=== PATIENT | male | born 1950 | race Caucasian/White ===

== ENCOUNTER 2021-09-06 09:13 | Inpatient (IN) ==
[2021-09-06 10:10] LABS: Basophils # 0.1 K/mcL (0.0-0.2); Basophils % 0.6 %; Eosinophils # 0.3 K/mcL (0.0-0.6); Eosinophils % 2.9 %; Hemoglobin 8.4 g/dL (12.9-16.9); Immature Granulocytes % 0.3 % (0-4); Lymphocytes % 9.1 %; Mean Corpuscular Hemoglobin 22.7 pg (28.0-33.3); Mean Corpuscular Volume 78.4 fL (83.0-100.0); Mean Platelet Volume 9.2 fL (9.4-12.4); Monocytes # 1.1 K/mcL (0.0-1.3); Monocytes % 10.1 %; Neutrophils # 8.4 K/mcL (1.6-8.9); Platelet Count 344 K/mcL (140-400); Red Cell Distribution Width 19.5 % (11.5-14.5); White Blood Count 10.9 K/mcL (4.3-11.1)
[2021-09-06 10:13] LABS: VBG HCO3 30 mEq/L (21-27); VBG PCO2 68 mmHg (41-51); VBG PH 7.25 pH Units (7.32-7.42); VBG PO2 36 mmHg (25-50)
[2021-09-06 10:17] LABS: Prothrombin Time 11.6 Seconds (9.4-12.1)
[2021-09-06 10:20] LABS: Activated Partial Thrombo Time 32.8 Seconds (26.0-36.0)
[2021-09-06 10:32] LABS: Albumin 3.9 g/dL (3.5-5.7); Albumin/Globulin Ratio 1.6 (1.1-2.2); Bilirubin,Direct 0.1 mg/dL (0.0-0.2); Bilirubin,Indirect 0.3 mg/dL (0.0-1.0); Bilirubin,Total 0.4 mg/dL (0.3-1.0); Calcium 9.6 mg/dL (8.6-10.3); Globulin 2.5 g/dL (2.4-3.5); Potassium 4.6 mEq/L (3.5-5.1); Total Protein 6.4 g/dL (6.4-8.9); Troponin I 0.03 ng/mL (< 0.04)
[2021-09-06 14:13] LABS: Influenza A PCR Negative (Negative); Influenza B PCR Negative (Negative); Resp. Syncytial Virus PCR Negative (Negative); SARS-CoV-2 by PCR (In House) Negative (Negative)
[2021-09-06] MEDS ORDERED: Ipratropium/Albuterol Neb 3 ML IH ONE (14:35)
[2021-09-06] MEDS ORDERED: methylPREDNISolone 125 MG/2 ML VIAL IVP ONE (14:45)
[2021-09-06] MEDS ORDERED: levoFLOXacin 500 MG/100 ML 500 MG/100 ML BAG IVPB ONE (14:45)
[2021-09-06] MEDS ORDERED: Naloxone 0.4 MG/ML INJ IVP PRN (16:06)
[2021-09-06] MEDS ORDERED: Ondansetron 4 MG/2 ML VIAL IVP PRN (16:06)
[2021-09-06] MEDS ORDERED: Nitroglycerin 0.4 MG TAB.SUBL SL PRN (16:43)
[2021-09-06] MEDS: Nicotine 21 MG PATCH.TD24 TD SCH (17:00)
[2021-09-06] MEDS: *HR* OxyCODONE Immed Rel 15 MG TABLET PO PRN (17:00)
[2021-09-06] MEDS: *HR* Heparin 5,000 UNIT/ML VIAL SQ SCH (17:00)
[2021-09-06] MEDS: Albuterol 2.5 MG/3 ML NEBULIZER IH SCH ×2 (19:49→23:31)
[2021-09-06] MEDS: carvediloL 6.25 MG TABLET PO SCH (21:23)
[2021-09-06] MEDS: traZODone 50 MG TABLET PO SCH (21:23)
[2021-09-06] MEDS: Pregabalin 75 MG CAPSULE PO SCH (21:23)
[2021-09-07] MEDS: Albuterol 2.5 MG/3 ML NEBULIZER IH SCH ×5 (03:47→19:51)
[2021-09-07 04:49] LABS: VBG HCO3 28 mEq/L (21-27); VBG PCO2 42 mmHg (41-51); VBG PH 7.43 pH Units (7.32-7.42); VBG PO2 81 mmHg (25-50)
[2021-09-07 04:53] LABS: Basophils % 0.4 %; Hemoglobin 8.2 g/dL (12.9-16.9); Immature Granulocytes % 0.8 % (0-4); Lymphocytes # 0.4 K/mcL (0.6-4.6); Lymphocytes % 6.8 %; Mean Corpuscular HGB Conc 29.3 g/dL (31.6-35.5); Mean Corpuscular Volume 75.3 fL (83.0-100.0); Mean Platelet Volume 9.3 fL (9.4-12.4); Monocytes # 0.2 K/mcL (0.0-1.3); Monocytes % 3.6 %; Neutrophils # 4.7 K/mcL (1.6-8.9); Platelet Count 337 K/mcL (140-400); Red Blood Count 3.72 M/mcL (4.19-5.50); Red Cell Distribution Width 19.2 % (11.5-14.5); Segmented Neutrophils % 88.4 %
[2021-09-07 05:00] LABS: White Blood Count 5.3 K/mcL (4.3-11.1)
[2021-09-07 05:27] LABS: BUN/Creatinine Ratio 16 (6-26); Blood Urea Nitrogen 18 mg/dL (8-23); Calcium 9.6 mg/dL (8.6-10.3); Carbon Dioxide 29 mEq/L (23-29); Chloride 100 mEq/L (98-107); Glucose 112 mg/dL (70-105); Magnesium 1.8 mg/dL (1.6-2.6); Osmolality,Calculated 285 (280-300); Potassium 4.7 mEq/L (3.5-5.1); Sodium 136 mEq/L (136-145); eGFR For African Americans > 60 (> 60); eGFR For Non-African Americans > 60 (> 60)
[2021-09-07] MEDS: *HR* Heparin 5,000 UNIT/ML VIAL SQ SCH ×2 (06:17→20:10)
[2021-09-07] MEDS: Aspirin Enteric Coated 81 MG Tablet PO SCH (09:20)
[2021-09-07] MEDS: lisinopriL 10 MG TABLET PO SCH (09:20)
[2021-09-07] MEDS: *HR* OxyCODONE Immed Rel 15 MG TABLET PO PRN ×3 (09:20→22:29)
[2021-09-07] MEDS: Nicotine 21 MG PATCH.TD24 TD SCH (09:20)
[2021-09-07] MEDS: Pregabalin 75 MG CAPSULE PO SCH ×3 (09:20→20:47)
[2021-09-07] MEDS: carvediloL 6.25 MG TABLET PO SCH ×2 (09:20→20:47)
[2021-09-07] MEDS: predniSONE 20 MG TABLET PO SCH (09:20)
[2021-09-07 13:16] LABS: Adenovirus Not Detected (Not Detect); Bordetella Pertussis Not Detected (Not Detect); Chlamydophila pneumoniae Not Detected (Not Detect); Coronavirus 229E Not Detected (Not Detect); Coronavirus HKU1 Not Detected (Not Detect); Coronavirus NL63 Not Detected (Not Detect); Coronavirus OC43 Not Detected (Not Detect); Human Metapneumovirus Not Detected (Not Detect); Human Rhinovirus/Enterovirus Not Detected (Not Detect); Influenza A Subtype 2009 H1 Not Detected (Not Detect); Influenza B Not Detected (Not Detect); Mycoplasma pneumoniae Not Detected (Not Detect); Parainfluenza Virus 1 Not Detected (Not Detect); Parainfluenza Virus 2 Not Detected (Not Detect); Parainfluenza Virus 3 Not Detected (Not Detect); Parainfluenza Virus 4 Not Detected (Not Detect); Respiratory Syncytial Virus Not Detected (Not Detect); SARS-CoV-2 Not Detected (Not Detect)
[2021-09-07] MEDS ORDERED: levoFLOXacin 750 MG/150 ML 750 MG/150 ML BAG IVPB SCH (16:00)
[2021-09-07 18:02] LABS: Bilirubin,Urine Negative (Negative); Blood,Urine Negative (Negative); Clarity,Urine Clear (Clear); Color,Urine Yellow (Yellow); Glucose,Urine (UA) Normal (Normal); Ketones,Urine 40 mg/dL (Negative); Leukocyte Esterase,Urine Negative (Negative); Nitrite,Urine Negative (Negative); Protein,Urine Negative (Neg-Trace); Urobilinogen,Urine Normal (Normal)
[2021-09-07 18:15] LABS: Mucus,Urine Few per lpf (None-Few); RBC,Urine 0-3 per hpf (0-3); Squamous Epithelial Cell,Urine Few per hpf (None-Few); WBC,Urine 0-3 per hpf (0-3)
[2021-09-07] MEDS: traZODone 50 MG TABLET PO SCH (20:47)
[2021-09-08] MEDS: Albuterol 2.5 MG/3 ML NEBULIZER IH SCH ×4 (00:30→11:41)
[2021-09-08] MEDS: *HR* Heparin 5,000 UNIT/ML VIAL SQ SCH (04:28)
[2021-09-08] MEDS: *HR* OxyCODONE Immed Rel 15 MG TABLET PO PRN ×2 (04:29→11:09)
[2021-09-08 07:25] LABS: BUN/Creatinine Ratio 18 (6-26); Blood Urea Nitrogen 25 mg/dL (8-23); Calcium 9.2 mg/dL (8.6-10.3); Carbon Dioxide 29 mEq/L (23-29); Chloride 101 mEq/L (98-107); Glucose 111 mg/dL (70-105); Osmolality,Calculated 289 (280-300); Potassium 3.6 mEq/L (3.5-5.1); Sodium 137 mEq/L (136-145); eGFR For African Americans > 60 (> 60); eGFR For Non-African Americans 51 (> 60)
[2021-09-08] MEDS: lisinopriL 10 MG TABLET PO SCH (07:46)
[2021-09-08] MEDS: predniSONE 20 MG TABLET PO SCH (07:46)
[2021-09-08] MEDS: carvediloL 6.25 MG TABLET PO SCH (07:46)
[2021-09-08] MEDS: Pregabalin 75 MG CAPSULE PO SCH (07:46)
[2021-09-08] MEDS: Aspirin Enteric Coated 81 MG Tablet PO SCH (07:46)
[2021-09-08] MEDS: Nicotine 21 MG PATCH.TD24 TD SCH (07:46)
[2021-09-08 07:49] LABS: Hematocrit 27.1 % (37.5-50.1); Hemoglobin 8.1 g/dL (12.9-16.9); Mean Corpuscular HGB Conc 29.9 g/dL (31.6-35.5); Mean Corpuscular Hemoglobin 22.1 pg (28.0-33.3); Mean Corpuscular Volume 73.8 fL (83.0-100.0); Mean Platelet Volume 9.4 fL (9.4-12.4); Platelet Count 349 K/mcL (140-400); Red Blood Count 3.67 M/mcL (4.19-5.50); Red Cell Distribution Width 19.1 % (11.5-14.5)
[2021-09-08 07:50] LABS: White Blood Count 13.7 K/mcL (4.3-11.1)
[2021-09-08 10:54] VITALS: BP 140/60; PULSE 87; TEMP 97.4
[2021-09-08 14:22] VITALS: O2SAT 100
[2021-09-08] MEDS ORDERED: levoFLOXacin 750 MG/150 ML 750 MG/150 ML BAG IVPB SCH (15:00)
== END 2021-09-08 14:29 | disposition home or self-care (01) | DRG 193 ==
LOC: 3NENU 09:13 → EMEROOARM 09:13 → 3NENU 16:14
PROVIDERS: ADMIT Hospitalist; ATTEND Hospitalist

== ENCOUNTER 2021-10-28 14:08 | Inpatient (IN) ==
[2021-10-28 15:09] LABS: White Blood Count 7.9 K/mcL (4.3-11.1)
[2021-10-28 15:11] LABS: Basophils # 0.1 K/mcL (0.0-0.2); Basophils % 0.6 %; Eosinophils # 0.4 K/mcL (0.0-0.6); Eosinophils % 5.4 %; Hematocrit 29.3 % (37.5-50.1); Hemoglobin 8.2 g/dL (12.9-16.9); Immature Granulocytes % 0.1 % (0-4); Lymphocytes # 0.7 K/mcL (0.6-4.6); Lymphocytes % 8.6 %; Mean Corpuscular Volume 82.1 fL (83.0-100.0); Neutrophils # 5.7 K/mcL (1.6-8.9); Platelet Count 345 K/mcL (140-400); Red Blood Count 3.57 M/mcL (4.19-5.50); Segmented Neutrophils % 72.3 %
[2021-10-28 15:52] LABS: Platelet Estimate Normal (Normal)
[2021-10-28 16:03] LABS: Albumin 3.7 g/dL (3.5-5.7); Albumin/Globulin Ratio 1.4 (1.1-2.2); Bilirubin,Total 0.3 mg/dL (0.3-1.0); Calcium 9.9 mg/dL (8.6-10.3); Globulin 2.6 g/dL (2.4-3.5); Potassium 4.7 mEq/L (3.5-5.1); Total Protein 6.3 g/dL (6.4-8.9); Troponin I 0.03 ng/mL (< 0.04)
[2021-10-28 16:30] LABS: Influenza A PCR Negative (Negative); Influenza B PCR Negative (Negative); Resp. Syncytial Virus PCR Negative (Negative)
[2021-10-28 16:31] LABS: SARS-CoV-2 by PCR (In House) Negative (Negative)
[2021-10-28 17:10] LABS: Bilirubin,Urine Negative (Negative); Blood,Urine Negative (Negative); Clarity,Urine Clear (Clear); Color,Urine Yellow (Yellow); Glucose,Urine (UA) Normal (Normal); Hyaline Casts,Urine Few per lpf (None Seen); Ketones,Urine Negative (Negative); Leukocyte Esterase,Urine Negative (Negative); Nitrite,Urine Negative (Negative); PH,Urine 5.5 pH Units (5.0-8.0); Protein,Urine 50 mg/dL (Neg-Trace); RBC,Urine 0-3 per hpf (0-3); Specific Gravity,Urine > 1.030 (1.010-1.025); Squamous Epithelial Cell,Urine Few per hpf (None-Few); WBC,Urine 0-3 per hpf (0-3)
[2021-10-28] MEDS ORDERED: *HR* OxyCODONE Immed Rel 5 MG TABLET PO ONE (18:29)
[2021-10-28] MEDS ORDERED: 0.9 % Sodium Chloride 1,000 ML IVC ONE (19:31)
[2021-10-28] MEDS ORDERED: Melatonin 3 MG TABLET PO PRN (20:38)
[2021-10-28] MEDS ORDERED: Naloxone 0.4 MG/ML INJ IVP PRN (20:38)
[2021-10-28 21:12] LABS: ABG Base Excess 5 mEq/L (-2 to 3); ABG HCO3 32 mEq/L (21-27); ABG Oxygen Saturation 87 % (95-98); ABG PCO2 60 mmHg (35-45); ABG PH 7.34 pH Units (7.32-7.45); ABG PO2 58 mmHg (85-104); ABG TCO2 34 mEq/L (20-26)
[2021-10-28] MEDS ORDERED: levoFLOXacin 750 MG/150 ML 750 MG/150 ML BAG IVPB SCH (22:30)
[2021-10-28 23:28] LABS: Acetaminophen < 10 mcg/mL (10-20); BUN/Creatinine Ratio 24 (6-26); Blood Urea Nitrogen 33 mg/dL (8-23); Calcium 9.7 mg/dL (8.6-10.3); Carbon Dioxide 33 mEq/L (23-29); Chloride 100 mEq/L (98-107); Glucose 102 mg/dL (70-105); Magnesium 1.8 mg/dL (1.6-2.6); Osmolality,Calculated 289 (280-300); Phosphorous 3.3 mg/dL (2.7-4.5); Potassium 4.8 mEq/L (3.5-5.1); Salicylate < 2.5 mg/dL (15.0-30.0); Sodium 136 mEq/L (136-145); eGFR For African Americans > 60 (> 60); eGFR For Non-African Americans 50 (> 60)
[2021-10-28 23:36] LABS: Procalcitonin 0.09 ng/mL (0.00-0.15)
[2021-10-28 23:53] LABS: Folate 13.2 ng/mL (3.0-16.0)
[2021-10-29] MEDS: Ipratropium/Albuterol Neb 3 ML IH SCH ×2 (00:03→04:20)
[2021-10-29] MEDS: MethylPREDNISolone 40 MG/ML VIAL IVP SCH ×4 (00:05→23:17)
[2021-10-29] MEDS ORDERED: Dextrose Gel 15 GM/37.5 ML TUBE PO PRN ×2 (01:29)
[2021-10-29] MEDS ORDERED: D5% in Water 1,000 ML IVC PRN (01:29)
[2021-10-29] MEDS ORDERED: *HR* Dextrose 50 % in Water (Syg) 50 ML SYRINGE IVP PRN (01:29)
[2021-10-29 01:31] LABS: Thyroid Stimulating Hormone 0.949 mcIU/mL (0.340-5.600)
[2021-10-29] MEDS ORDERED: Furosemide 40 MG/4 ML VIAL IVP ONE (03:01)
[2021-10-29 04:38] LABS: ABG Base Excess 3 mEq/L (-2 to 3); ABG HCO3 29 mEq/L (21-27); ABG Oxygen Saturation 95 % (95-98); ABG PCO2 51 mmHg (35-45); ABG PH 7.36 pH Units (7.32-7.45); ABG PO2 77 mmHg (85-104); ABG TCO2 31 mEq/L (20-26); Blood Gas Pressure Support 6 cm H2O
[2021-10-29 06:20] LABS: Hemoglobin 8.7 g/dL (12.9-16.9); Monocytes % 4.2 %
[2021-10-29 06:22] LABS: Basophils % 0.2 %; Hematocrit 31.1 % (37.5-50.1); Immature Granulocytes % 0.6 % (0-4); Lymphocytes # 0.4 K/mcL (0.6-4.6); Lymphocytes % 2.3 %; Mean Corpuscular Hemoglobin 22.8 pg (28.0-33.3); Mean Corpuscular Volume 81.6 fL (83.0-100.0); Mean Platelet Volume 9.8 fL (9.4-12.4); Monocytes # 0.7 K/mcL (0.0-1.3); Neutrophils # 14.9 K/mcL (1.6-8.9); Platelet Count 389 K/mcL (140-400); Red Blood Count 3.81 M/mcL (4.19-5.50); Red Cell Distribution Width 19.2 % (11.5-14.5); Segmented Neutrophils % 92.7 %; White Blood Count 16.1 K/mcL (4.3-11.1)
[2021-10-29] MEDS: Chlorhexidine Rinse 15 ML MOUTHWASH MM SCH ×2 (07:11→20:53)
[2021-10-29 07:15] LABS: Magnesium 2.5 mg/dL (1.6-2.6); Phosphorous 2.5 mg/dL (2.7-4.5)
[2021-10-29 07:23] LABS: Anisocytosis 1+ (Not Present); Hypochromasia Present (Not Present); Platelet Estimate Normal (Normal)
[2021-10-29] MEDS: *HR* Heparin 5,000 UNIT/ML VIAL SQ SCH ×3 (07:27→20:53)
[2021-10-29] MEDS: Meropenem 1,000 MG in 0.9 % Sodium Chloride Mini Bag 100 ML IVP SCH ×3 (07:27→20:53)
[2021-10-29] MEDS ORDERED: Budesonide/Formoterol 160/4.5 1 PUFF INH IH ONE (07:34)
[2021-10-29] MEDS: Budesonide/Formoterol 160/4.5 1 PUFF INH IH SCH ×2 (07:38→23:52)
[2021-10-29] MEDS: Levalbuterol 1 PUFF INHALER IH SCH ×4 (07:50→23:52)
[2021-10-29] MEDS ORDERED: Haloperidol Lactate 5 MG/ML VIAL IM ONE (08:08)
[2021-10-29] MEDS ORDERED: *HR* LORazepam 2 MG/ML VIAL IVP ONE (08:54)
[2021-10-29] MEDS: Dexmedetomidine HCl 400 MCG/100 ML MLS IVC SCH ×2 (09:42→20:05)
[2021-10-29] MEDS ORDERED: *HR* Metoprolol 5 MG/5 ML VIAL IVP ONE (10:53)
[2021-10-29] MEDS: Nicotine 21 MG PATCH.TD24 TD SCH (17:47)
[2021-10-30] MEDS: Levalbuterol 1 PUFF INHALER IH SCH ×4 (04:11→19:43)
[2021-10-30] MEDS: *HR* Heparin 5,000 UNIT/ML VIAL SQ SCH ×3 (04:48→20:49)
[2021-10-30] MEDS: Dexmedetomidine HCl 400 MCG/100 ML MLS IVC SCH ×3 (04:48→23:11)
[2021-10-30] MEDS: Meropenem 1,000 MG in 0.9 % Sodium Chloride Mini Bag 100 ML IVP SCH (04:49)
[2021-10-30] MEDS: Budesonide/Formoterol 160/4.5 1 PUFF INH IH SCH ×2 (07:38→19:42)
[2021-10-30] MEDS: MethylPREDNISolone 40 MG/ML VIAL IVP SCH ×3 (08:09→23:11)
[2021-10-30] MEDS: Chlorhexidine Rinse 15 ML MOUTHWASH MM SCH ×2 (08:10→20:49)
[2021-10-30] MEDS: Nicotine 21 MG PATCH.TD24 TD SCH (08:10)
[2021-10-30 12:01] LABS: Amphetamine Screen,Urine Negative ng/mL (Cutoff=1000); Barbiturate Screen,Urine Negative ng/mL (Cutoff=200); Benzodiazepines Screen,Urine Negative ng/mL (Cutoff=200); Cannabinoid Screen,Urine Negative ng/mL (Cutoff = 50); Cocaine Screen,Urine Negative ng/mL (Cutoff= 300); Phencyclidine Screen,Urine Negative ng/mL (Cutoff=25)
[2021-10-30 12:10] LABS: Opiate Screen,Urine Negative ng/mL (Cutoff=300)
[2021-10-30] MEDS: Pregabalin 75 MG CAPSULE PO SCH ×2 (13:57→20:49)
[2021-10-30] MEDS: levoFLOXacin 750 MG/150 ML 750 MG/150 ML BAG IVPB SCH (13:58)
[2021-10-30] MEDS: BuPROPion XL (24 HR) 150 MG TABLET PO SCH (13:59)
[2021-10-30] MEDS: carvediloL 6.25 MG TABLET PO SCH (16:24)
[2021-10-30] MEDS ORDERED: NON-FORMULARY MEDICATION 1 EACH EACH (Fluticasone/Salmeterol [Advair Hfa 115-21 Mcg Inhale IH SCH (21:00)
[2021-10-31] MEDS: Levalbuterol 1 PUFF INHALER IH SCH ×4 (03:41→20:09)
[2021-10-31 03:47] LABS: Basophils % 0.1 %; Hematocrit 29.3 % (37.5-50.1); Hemoglobin 8.6 g/dL (12.9-16.9); Immature Granulocytes % 0.6 % (0-4); Lymphocytes # 0.5 K/mcL (0.6-4.6); Lymphocytes % 3.1 %; Mean Corpuscular HGB Conc 29.4 g/dL (31.6-35.5); Mean Corpuscular Hemoglobin 22.3 pg (28.0-33.3); Mean Corpuscular Volume 75.9 fL (83.0-100.0); Monocytes # 0.5 K/mcL (0.0-1.3); Monocytes % 3.2 %; Neutrophils # 14.3 K/mcL (1.6-8.9); Platelet Count 433 K/mcL (140-400); Red Blood Count 3.86 M/mcL (4.19-5.50); Red Cell Distribution Width 19.2 % (11.5-14.5); White Blood Count 15.4 K/mcL (4.3-11.1)
[2021-10-31 04:11] LABS: BUN/Creatinine Ratio 31 (6-26); Blood Urea Nitrogen 38 mg/dL (8-23); Calcium 10.2 mg/dL (8.6-10.3); Carbon Dioxide 30 mEq/L (23-29); Chloride 94 mEq/L (98-107); Glucose 117 mg/dL (70-105); Osmolality,Calculated 288 (280-300); Potassium 4.1 mEq/L (3.5-5.1); Sodium 134 mEq/L (136-145); eGFR For African Americans > 60 (> 60); eGFR For Non-African Americans 57 (> 60)
[2021-10-31] MEDS: *HR* Heparin 5,000 UNIT/ML VIAL SQ SCH ×3 (06:05→20:58)
[2021-10-31] MEDS: Nicotine 21 MG PATCH.TD24 TD SCH (08:09)
[2021-10-31] MEDS: Dexmedetomidine HCl 400 MCG/100 ML MLS IVC SCH ×2 (08:09→17:49)
[2021-10-31] MEDS: Megestrol Acetate 400 MG/10 ML UDC PO SCH (08:09)
[2021-10-31] MEDS: Chlorhexidine Rinse 15 ML MOUTHWASH MM SCH ×2 (08:09→21:01)
[2021-10-31] MEDS: MethylPREDNISolone 40 MG/ML VIAL IVP SCH ×3 (08:11→23:33)
[2021-10-31] MEDS: BuPROPion XL (24 HR) 150 MG TABLET PO SCH (08:11)
[2021-10-31] MEDS: Pregabalin 75 MG CAPSULE PO SCH ×3 (08:11→20:59)
[2021-10-31] MEDS: lisinopriL 10 MG TABLET PO SCH (08:11)
[2021-10-31] MEDS: Aspirin Enteric Coated 81 MG Tablet PO SCH (08:11)
[2021-10-31] MEDS: Acetaminophen 325 MG TABLET PO PRN ×2 (08:12→23:33)
[2021-10-31] MEDS: carvediloL 6.25 MG TABLET PO SCH ×2 (08:12→16:48)
[2021-10-31] MEDS: Budesonide/Formoterol 160/4.5 1 PUFF INH IH SCH ×2 (08:26→20:09)
[2021-10-31] MEDS: levoFLOXacin 750 MG/150 ML 750 MG/150 ML BAG IVPB SCH (11:53)
[2021-11-01] MEDS: Dexmedetomidine HCl 400 MCG/100 ML MLS IVC SCH ×2 (00:07→10:52)
[2021-11-01] MEDS: *HR* Metoprolol 5 MG/5 ML VIAL IVP ONE ×2 (03:42→03:47)
[2021-11-01] MEDS: Levalbuterol 1 PUFF INHALER IH SCH ×4 (03:58→20:38)
[2021-11-01 04:37] LABS: BUN/Creatinine Ratio 28 (6-26); Blood Urea Nitrogen 38 mg/dL (8-23); Calcium 10.2 mg/dL (8.6-10.3); Carbon Dioxide 30 mEq/L (23-29); Chloride 95 mEq/L (98-107); Glucose 121 mg/dL (70-105); Osmolality,Calculated 278 (280-300); Potassium 3.9 mEq/L (3.5-5.1); Sodium 129 mEq/L (136-145); eGFR For African Americans > 60 (> 60); eGFR For Non-African Americans 51 (> 60)
[2021-11-01] MEDS: Acetaminophen 325 MG TABLET PO PRN ×2 (05:36→19:40)
[2021-11-01] MEDS: *HR* Heparin 5,000 UNIT/ML VIAL SQ SCH ×3 (05:37→19:46)
[2021-11-01] MEDS: Budesonide/Formoterol 160/4.5 1 PUFF INH IH SCH ×2 (07:56→20:38)
[2021-11-01] MEDS: carvediloL 6.25 MG TABLET PO SCH ×2 (10:32→16:32)
[2021-11-01] MEDS: Nicotine 21 MG PATCH.TD24 TD SCH (10:32)
[2021-11-01] MEDS: MethylPREDNISolone 40 MG/ML VIAL IVP SCH ×3 (10:32→23:34)
[2021-11-01] MEDS: Chlorhexidine Rinse 15 ML MOUTHWASH MM SCH ×2 (10:33→19:41)
[2021-11-01] MEDS: Aspirin Enteric Coated 81 MG Tablet PO SCH (10:33)
[2021-11-01] MEDS: Megestrol Acetate 400 MG/10 ML UDC PO SCH (10:33)
[2021-11-01] MEDS: Pregabalin 75 MG CAPSULE PO SCH ×3 (10:33→19:41)
[2021-11-01] MEDS: BuPROPion XL (24 HR) 150 MG TABLET PO SCH (10:34)
[2021-11-01] MEDS: lisinopriL 10 MG TABLET PO SCH (10:34)
[2021-11-01] MEDS: levoFLOXacin 750 MG/150 ML 750 MG/150 ML BAG IVPB SCH (12:52)
[2021-11-02 01:30] LABS: Basophils % 0.3 %; Hematocrit 30.5 % (37.5-50.1); Immature Granulocytes % 1.7 % (0-4); Lymphocytes # 0.7 K/mcL (0.6-4.6); Lymphocytes % 6.6 %; Mean Corpuscular HGB Conc 29.5 g/dL (31.6-35.5); Mean Corpuscular Hemoglobin 21.7 pg (28.0-33.3); Mean Corpuscular Volume 73.5 fL (83.0-100.0); Mean Platelet Volume 9.9 fL (9.4-12.4); Monocytes # 0.8 K/mcL (0.0-1.3); Monocytes % 8.6 %; Neutrophils # 8.1 K/mcL (1.6-8.9); Nucleated Red Blood Cells 0.3 /100 WBC (0); Platelet Count 422 K/mcL (140-400); Red Blood Count 4.15 M/mcL (4.19-5.50); Red Cell Distribution Width 18.6 % (11.5-14.5); Segmented Neutrophils % 82.8 %; White Blood Count 9.8 K/mcL (4.3-11.1)
[2021-11-02] MEDS: Acetaminophen 325 MG TABLET PO PRN (01:45)
[2021-11-02 01:49] LABS: Calcium 9.5 mg/dL (8.6-10.3); Potassium 3.9 mEq/L (3.5-5.1)
[2021-11-02] MEDS: Levalbuterol 1 PUFF INHALER IH SCH ×3 (04:14→15:19)
[2021-11-02 05:09] LABS: Magnesium 1.9 mg/dL (1.6-2.6); Phosphorous 2.7 mg/dL (2.7-4.5)
[2021-11-02] MEDS: *HR* Heparin 5,000 UNIT/ML VIAL SQ SCH ×2 (05:47→13:03)
[2021-11-02] MEDS: Budesonide/Formoterol 160/4.5 1 PUFF INH IH SCH (07:33)
[2021-11-02] MEDS: Aspirin Enteric Coated 81 MG Tablet PO SCH (08:37)
[2021-11-02] MEDS: Nicotine 21 MG PATCH.TD24 TD SCH (08:37)
[2021-11-02] MEDS: Megestrol Acetate 400 MG/10 ML UDC PO SCH (08:38)
[2021-11-02] MEDS: carvediloL 6.25 MG TABLET PO SCH (08:38)
[2021-11-02] MEDS: lisinopriL 10 MG TABLET PO SCH (08:38)
[2021-11-02] MEDS: Pregabalin 75 MG CAPSULE PO SCH ×2 (08:38→14:52)
[2021-11-02] MEDS: Chlorhexidine Rinse 15 ML MOUTHWASH MM SCH (08:39)
[2021-11-02] MEDS: MethylPREDNISolone 40 MG/ML VIAL IVP SCH ×2 (08:39→14:52)
[2021-11-02] MEDS: BuPROPion XL (24 HR) 150 MG TABLET PO SCH (08:39)
[2021-11-02] MEDS: levoFLOXacin 750 MG/150 ML 750 MG/150 ML BAG IVPB SCH (13:04)
[2021-11-02 14:52] VITALS: BP 128/65; PULSE 83; TEMP 97.6
[2021-11-02 17:15] VITALS: O2SAT 98
== END 2021-11-02 16:48 | disposition home health service (06) | DRG 193 ==
LOC: 3BNU 14:08 → EMEROOARM 14:08 → SUATTDRO 20:16 → 3BNU 20:33 → 2NENU 10-29 06:08 → SUATTDRO 10-29 17:31
PROVIDERS: ADMIT Internal Medicine; ATTEND Hospitalist

== ENCOUNTER 2022-01-02 16:32 | Inpatient (IN) ==
[2022-01-02] MEDS ORDERED: Ondansetron ODT 4 MG TAB.RAPDIS SL PRN (20:08)
[2022-01-02] MEDS ORDERED: Acetaminophen 325 MG TABLET PO PRN (20:08)
[2022-01-02] MEDS ORDERED: Naloxone 0.4 MG/ML INJ IVP PRN (20:08)
[2022-01-02] MEDS ORDERED: Melatonin 3 MG TABLET PO PRN (20:08)
[2022-01-02] MEDS ORDERED: Nicotine 21 MG PATCH.TD24 TD PRN (20:28)
[2022-01-02] MEDS: Budesonide/Formoterol 160/4.5 1 PUFF INH IH SCH (20:53)
[2022-01-02] MEDS: Ipratropium/Albuterol Neb 3 ML IH PRN (20:59)
[2022-01-02 21:00] LABS: ABG Base Excess -11 mEq/L (-2 to 3); ABG HCO3 17 mEq/L (21-27); ABG Oxygen Saturation 89 % (95-98); ABG PCO2 49 mmHg (35-45); ABG PH 7.15 pH Units (7.32-7.45); ABG PO2 73 mmHg (85-104); ABG TCO2 18 mEq/L (20-26)
[2022-01-02 21:02] LABS: Basophils % 0.3 %; Eosinophils # 0.2 K/mcL (0.0-0.6); Eosinophils % 2.2 %; Hematocrit 25.9 % (37.5-50.1); Hemoglobin 7.6 g/dL (12.9-16.9); Immature Granulocytes % 0.6 % (0-4); Lymphocytes # 0.7 K/mcL (0.6-4.6); Lymphocytes % 7.4 %; Mean Corpuscular HGB Conc 29.3 g/dL (31.6-35.5); Mean Corpuscular Hemoglobin 24.2 pg (28.0-33.3); Mean Corpuscular Volume 82.5 fL (83.0-100.0); Mean Platelet Volume 9.3 fL (9.4-12.4); Monocytes # 1.1 K/mcL (0.0-1.3); Monocytes % 12.1 %; Neutrophils # 6.8 K/mcL (1.6-8.9); Platelet Count 253 K/mcL (140-400); Red Blood Count 3.14 M/mcL (4.19-5.50); Red Cell Distribution Width 20.6 % (11.5-14.5); Segmented Neutrophils % 77.4 %; White Blood Count 8.7 K/mcL (4.3-11.1)
[2022-01-02 21:22] LABS: Albumin 3.3 g/dL (3.5-5.7); Albumin/Globulin Ratio 1.3 (1.1-2.2); Bilirubin,Indirect 0.2 mg/dL (0.0-1.0); Bilirubin,Total 0.2 mg/dL (0.3-1.0); Globulin 2.5 g/dL (2.4-3.5); Total Protein 5.8 g/dL (6.4-8.9)
[2022-01-02 21:25] LABS: Alanine Aminotransferase 7 Units/L (7-52); Albumin 3.4 g/dL (3.5-5.7); Albumin/Globulin Ratio 1.5 (1.1-2.2); Alkaline Phosphatase 77 Units/L (34-104); Aspartate Amino Transferase 13 Units/L (13-39); BUN/Creatinine Ratio 9 (6-26); Bilirubin,Total 0.2 mg/dL (0.3-1.0); Blood Urea Nitrogen 59 mg/dL (8-23); Calcium 8.5 mg/dL (8.6-10.3); Carbon Dioxide 15 mEq/L (23-29); Chloride 107 mEq/L (98-107); Chol/HDL Ratio 2.6 (0-4.9); Cholesterol 98 mg/dL (< 200); Globulin 2.3 g/dL (2.4-3.5); Glucose 88 mg/dL (70-105); HDL Cholesterol 38 mg/dL (40-59); LDL Cholesterol,Calculated 44 mg/dL (< 100); Magnesium 1.9 mg/dL (1.6-2.6); Osmolality,Calculated 298 (280-300); Phosphorous 7.1 mg/dL (2.7-4.5); Potassium 4.6 mEq/L (3.5-5.1); Sodium 136 mEq/L (136-145); Total Protein 5.7 g/dL (6.4-8.9); Triglycerides 78 mg/dL (< 150); Troponin I < 0.03 ng/mL (< 0.04); eGFR For African Americans 10 (> 60); eGFR For Non-African Americans 8 (> 60)
[2022-01-02] MEDS ORDERED: 0.9 % Sodium Chloride 1,000 ML IVC SCH (21:30)
[2022-01-02] MEDS ORDERED: Sodium Bicarbonate 50 MEQ/50 ML VIAL IVP ONE (21:30)
[2022-01-02 21:51] LABS: Prothrombin Time 11.4 Seconds (9.4-12.1)
[2022-01-02 21:53] LABS: Activated Partial Thrombo Time 30.6 Seconds (26.0-36.0)
[2022-01-02] MEDS ORDERED: Albumin 25% 25gram/100mL 25 GM/100 ML IV.SOLN IVPB ONE (21:58)
[2022-01-02 22:08] LABS: Thyroid Stimulating Hormone 0.657 mcIU/mL (0.340-5.600)
[2022-01-02 23:20] LABS: Acetaminophen < 10 mcg/mL (10-20); Ethanol < 10 mg/dL (Less than 10); Salicylate < 2.5 mg/dL (15.0-30.0)
[2022-01-02 23:57] LABS: Prolactin 71.77 ng/mL (3.00-14.70)
[2022-01-03 00:29] LABS: Bilirubin,Urine Negative (Negative); Blood,Urine Small (Negative); Clarity,Urine Turbid (Clear); Color,Urine Yellow (Yellow); Glucose,Urine (UA) Normal (Normal); Ketones,Urine Trace mg/dL (Negative); Leukocyte Esterase,Urine Trace (Negative); Nitrite,Urine Negative (Negative); PH,Urine 5.5 pH Units (5.0-8.0); Potassium,Urine 34.3 mEq/L; Protein,Urine 70 mg/dL (Neg-Trace); Specific Gravity,Urine 1.023 (1.010-1.025)
[2022-01-03 00:39] LABS: Squamous Epithelial Cell,Urine Moderate per hpf (None-Few)
[2022-01-03 00:40] LABS: Bacteria,Urine Many per hpf (None-Few); Calcium Oxalate Crystals,Urine Present per hpf; Transitional Epi Cells,Urine Moderate per hpf (None-Few)
[2022-01-03 01:01] LABS: Amphetamine Screen,Urine Negative ng/mL (Cutoff=1000); Barbiturate Screen,Urine Negative ng/mL (Cutoff=200); Benzodiazepines Screen,Urine Negative ng/mL (Cutoff=200); Cannabinoid Screen,Urine Negative ng/mL (Cutoff = 50); Cocaine Screen,Urine Negative ng/mL (Cutoff= 300); Opiate Screen,Urine Positive ng/mL (Cutoff=300); Phencyclidine Screen,Urine Negative ng/mL (Cutoff=25); Sodium, Urine 39.8 mEq/L
[2022-01-03 01:41] LABS: Basophils % 0.5 %
[2022-01-03 01:42] LABS: Eosinophils # 0.2 K/mcL (0.0-0.6); Eosinophils % 2.8 %; Hematocrit 24.7 % (37.5-50.1); Immature Granulocytes % 0.4 % (0-4); Lymphocytes # 0.5 K/mcL (0.6-4.6); Lymphocytes % 6.7 %; Mean Corpuscular HGB Conc 28.3 g/dL (31.6-35.5); Mean Corpuscular Hemoglobin 24.4 pg (28.0-33.3); Mean Corpuscular Volume 86.1 fL (83.0-100.0); Mean Platelet Volume 9.3 fL (9.4-12.4); Monocytes # 1.1 K/mcL (0.0-1.3); Monocytes % 13.8 %; Neutrophils # 5.8 K/mcL (1.6-8.9); Nucleated Red Blood Cells 0.3 /100 WBC (0); Platelet Count 247 K/mcL (140-400); Red Blood Count 2.87 M/mcL (4.19-5.50); Red Cell Distribution Width 20.6 % (11.5-14.5); Segmented Neutrophils % 75.8 %; White Blood Count 7.6 K/mcL (4.3-11.1)
[2022-01-03 02:02] LABS: Anisocytosis 2+ (Not Present); Hypochromasia Present (Not Present); Platelet Estimate Normal (Normal)
[2022-01-03 02:08] LABS: Calcium 8.6 mg/dL (8.6-10.3); Potassium 4.3 mEq/L (3.5-5.1)
[2022-01-03] MEDS ORDERED: 0.9 % Sodium Chloride 500 ML IVC ONE (03:02)
[2022-01-03] MEDS: Ipratropium/Albuterol Neb 3 ML IH PRN (04:20)
[2022-01-03 04:24] LABS: ABG Base Excess -11 mEq/L (-2 to 3); ABG HCO3 17 mEq/L (21-27); ABG Oxygen Saturation 93 % (95-98); ABG PCO2 46 mmHg (35-45); ABG PH 7.17 pH Units (7.32-7.45); ABG PO2 84 mmHg (85-104); ABG TCO2 18 mEq/L (20-26)
[2022-01-03] MEDS ORDERED: levoFLOXacin 750 MG/150 ML 750 MG/150 ML BAG IVPB SCH (05:00)
[2022-01-03 05:10] LABS: Calcium 8.5 mg/dL (8.6-10.3); Potassium 4.3 mEq/L (3.5-5.1)
[2022-01-03 07:18] LABS: Phosphorous 7.6 mg/dL (2.7-4.5)
[2022-01-03] MEDS: Piperacillin/Tazobactam 3.375 GM in 0.9 % Sodium Chloride Mini Bag 100 ML IVPB SCH ×2 (07:38→20:36)
[2022-01-03] MEDS: Budesonide/Formoterol 160/4.5 1 PUFF INH IH SCH ×3 (08:09→22:10)
[2022-01-03 09:07] LABS: VBG HCO3 16 mEq/L (21-27); VBG PCO2 38 mmHg (41-51); VBG PH 7.23 pH Units (7.32-7.42); VBG PO2 141 mmHg (25-50)
[2022-01-03] MEDS ORDERED: Furosemide 40 MG/4 ML VIAL IVP ONE (11:14)
[2022-01-03] MEDS: Norepinephrine 4 MG/254 ML IV.SOLN IVC SCH (12:25)
[2022-01-03] MEDS: Sodium Bicarbonate 150 MEQ in D5% in Water 1,000 ML IVC SCH (14:10)
[2022-01-03 14:50] LABS: Uric Acid 9.7 mg/dL (2.3-7.6)
[2022-01-04 04:11] LABS: Basophils % 0.3 %; Eosinophils # 0.1 K/mcL (0.0-0.6); Eosinophils % 1.1 %; Hematocrit 23.9 % (37.5-50.1); Hemoglobin 7.2 g/dL (12.9-16.9); Immature Granulocytes % 0.8 % (0-4); Lymphocytes # 0.3 K/mcL (0.6-4.6); Lymphocytes % 3.6 %; Mean Corpuscular HGB Conc 30.1 g/dL (31.6-35.5); Mean Corpuscular Hemoglobin 24.7 pg (28.0-33.3); Mean Corpuscular Volume 81.8 fL (83.0-100.0); Mean Platelet Volume 9.4 fL (9.4-12.4); Monocytes # 1.3 K/mcL (0.0-1.3); Monocytes % 13.7 %; Neutrophils # 7.5 K/mcL (1.6-8.9); Platelet Count 269 K/mcL (140-400); Red Blood Count 2.92 M/mcL (4.19-5.50); Red Cell Distribution Width 20.7 % (11.5-14.5); Segmented Neutrophils % 80.5 %; White Blood Count 9.3 K/mcL (4.3-11.1)
[2022-01-04] MEDS: Sodium Bicarbonate 150 MEQ in D5% in Water 1,000 ML IVC SCH ×2 (04:13→20:25)
[2022-01-04] MEDS: Norepinephrine 4 MG/254 ML IV.SOLN IVC SCH ×3 (04:16→16:34)
[2022-01-04 04:29] LABS: Calcium 8.7 mg/dL (8.6-10.3); Magnesium 1.6 mg/dL (1.6-2.6); Potassium 4.2 mEq/L (3.5-5.1)
[2022-01-04] MEDS: *HR* Heparin 5,000 UNIT/ML VIAL SQ SCH ×2 (06:11→17:27)
[2022-01-04] MEDS: Piperacillin/Tazobactam 3.375 GM in 0.9 % Sodium Chloride Mini Bag 100 ML IVPB SCH ×2 (08:07→21:01)
[2022-01-04] MEDS: Budesonide/Formoterol 160/4.5 1 PUFF INH IH SCH ×2 (08:53→20:45)
[2022-01-04] MEDS ORDERED: Albumin 25% 12.5gm/50mL 12.5 GM/50 ML IV.SOLN IVPB ONE (10:42)
[2022-01-04] MEDS ORDERED: Valproic Acid INJ 750 MG in 0.9 % Sodium Chloride 100 ML IVPB ONE (16:45)
[2022-01-04] MEDS: Valproic Acid INJ 500 MG in 0.9 % Sodium Chloride 100 ML IVPB SCH (21:02)
[2022-01-04] MEDS: Thiamine (B-1) 100 MG in 0.9 % Sodium Chloride 50 ML IVPB SCH (21:02)
[2022-01-04] MEDS ORDERED: *HR* Metoprolol 5 MG/5 ML VIAL IVP ONE (21:11)
[2022-01-05 05:20] LABS: ABG Base Excess 8 mEq/L (-2 to 3); ABG HCO3 33 mEq/L (21-27); ABG Oxygen Saturation 97 % (95-98); ABG PCO2 51 mmHg (35-45); ABG PH 7.42 pH Units (7.32-7.45); ABG PO2 96 mmHg (85-104); ABG TCO2 35 mEq/L (20-26)
[2022-01-05] MEDS: Norepinephrine 4 MG/254 ML IV.SOLN IVC SCH ×2 (05:36→19:55)
[2022-01-05] MEDS: *HR* Heparin 5,000 UNIT/ML VIAL SQ SCH ×2 (06:45→17:03)
[2022-01-05] MEDS: Thiamine (B-1) 100 MG in 0.9 % Sodium Chloride 50 ML IVPB SCH ×2 (07:51→20:37)
[2022-01-05] MEDS: levoFLOXacin 500 MG/100 ML 500 MG/100 ML BAG IVPB SCH (07:52)
[2022-01-05] MEDS: Piperacillin/Tazobactam 3.375 GM in 0.9 % Sodium Chloride Mini Bag 100 ML IVPB SCH ×2 (07:52→20:17)
[2022-01-05] MEDS: Valproic Acid INJ 500 MG in 0.9 % Sodium Chloride 100 ML IVPB SCH ×2 (07:53→21:06)
[2022-01-05] MEDS: Budesonide/Formoterol 160/4.5 1 PUFF INH IH SCH ×2 (07:53→20:16)
[2022-01-05] MEDS ORDERED: Furosemide 20 MG/2 ML VIAL IVP ONE (11:13)
[2022-01-05] MEDS: *HR* LORazepam 2 MG/ML VIAL IVP PRN ×2 (11:22→23:31)
[2022-01-05] MEDS: Dexmedetomidine HCl 400 MCG/100 ML MLS IVC SCH ×2 (12:36→23:27)
[2022-01-05 14:07] LABS: Basophils # 0.1 K/mcL (0.0-0.2); Basophils % 0.6 %; Eosinophils # 0.3 K/mcL (0.0-0.6); Eosinophils % 2.5 %; Hemoglobin 8.2 g/dL (12.9-16.9); Immature Granulocytes % 0.6 % (0-4); Lymphocytes # 0.5 K/mcL (0.6-4.6); Lymphocytes % 4.9 %; Mean Corpuscular HGB Conc 30.4 g/dL (31.6-35.5); Mean Corpuscular Hemoglobin 24.6 pg (28.0-33.3); Mean Corpuscular Volume 81.1 fL (83.0-100.0); Mean Platelet Volume 9.6 fL (9.4-12.4); Monocytes # 1.4 K/mcL (0.0-1.3); Monocytes % 12.2 %; Neutrophils # 8.8 K/mcL (1.6-8.9); Platelet Count 330 K/mcL (140-400); Red Blood Count 3.33 M/mcL (4.19-5.50); Red Cell Distribution Width 20.6 % (11.5-14.5); Segmented Neutrophils % 79.2 %; White Blood Count 11.1 K/mcL (4.3-11.1)
[2022-01-05 14:14] LABS: VBG Ionized Calcium 1.22 mmol/L (1.15-1.35)
[2022-01-05] MEDS ORDERED: *HR* FentaNYL (PF) 100 MCG/2 ML VIAL IVP ONE (14:23)
[2022-01-05 14:28] LABS: Magnesium 1.6 mg/dL (1.6-2.6); Phosphorous 2.3 mg/dL (2.7-4.5)
[2022-01-05 14:28] LABS: ABG Base Excess 8 mEq/L (-2 to 3); ABG HCO3 34 mEq/L (21-27); ABG Oxygen Saturation 98 % (95-98); ABG PCO2 52 mmHg (35-45); ABG PH 7.42 pH Units (7.32-7.45); ABG PO2 106 mmHg (85-104); ABG TCO2 35 mEq/L (20-26)
[2022-01-05 15:35] LABS: Calcium 9.6 mg/dL (8.6-10.3); Potassium 3.8 mEq/L (3.5-5.1)
[2022-01-05] MEDS ORDERED: *HR* FentaNYL (PF) 100 MCG/2 ML VIAL IVP PRN (15:59)
[2022-01-05] MEDS ORDERED: *HR* FentaNYL PATCH 25 MCG PATCH TD SCH (17:30)
[2022-01-06] MEDS: *HR* FentaNYL (PF) 100 MCG/2 ML VIAL IVP PRN ×5 (02:54→23:00)
[2022-01-06 04:05] LABS: Basophils # 0.1 K/mcL (0.0-0.2); Basophils % 0.8 %; Eosinophils % 0.3 %; Hematocrit 25.7 % (37.5-50.1); Hemoglobin 7.8 g/dL (12.9-16.9); Immature Granulocytes % 0.4 % (0-4); Lymphocytes # 0.7 K/mcL (0.6-4.6); Mean Corpuscular HGB Conc 30.4 g/dL (31.6-35.5); Mean Corpuscular Hemoglobin 24.5 pg (28.0-33.3); Mean Corpuscular Volume 80.8 fL (83.0-100.0); Mean Platelet Volume 9.4 fL (9.4-12.4); Monocytes # 1.3 K/mcL (0.0-1.3); Monocytes % 13.2 %; Neutrophils # 7.6 K/mcL (1.6-8.9); Platelet Count 308 K/mcL (140-400); Red Blood Count 3.18 M/mcL (4.19-5.50); Red Cell Distribution Width 20.7 % (11.5-14.5); Segmented Neutrophils % 78.3 %; White Blood Count 9.7 K/mcL (4.3-11.1)
[2022-01-06 04:19] LABS: Calcium 9.4 mg/dL (8.6-10.3); Magnesium 1.6 mg/dL (1.6-2.6); Potassium 4.1 mEq/L (3.5-5.1)
[2022-01-06] MEDS: *HR* Heparin 5,000 UNIT/ML VIAL SQ SCH ×2 (05:22→18:13)
[2022-01-06] MEDS: Piperacillin/Tazobactam 3.375 GM in 0.9 % Sodium Chloride Mini Bag 100 ML IVPB SCH (07:26)
[2022-01-06] MEDS: Dexmedetomidine HCl 400 MCG/100 ML MLS IVC SCH ×3 (07:27→23:32)
[2022-01-06] MEDS: levoFLOXacin 500 MG/100 ML 500 MG/100 ML BAG IVPB SCH (08:29)
[2022-01-06] MEDS: Thiamine (B-1) 100 MG in 0.9 % Sodium Chloride 50 ML IVPB SCH ×2 (08:36→21:47)
[2022-01-06] MEDS: Valproic Acid INJ 500 MG in 0.9 % Sodium Chloride 100 ML IVPB SCH ×2 (09:39→21:47)
[2022-01-06] MEDS: *HR* LORazepam 2 MG/ML VIAL IVP PRN ×3 (09:43→21:42)
[2022-01-06] MEDS: Norepinephrine 4 MG/254 ML IV.SOLN IVC SCH (09:50)
[2022-01-06] MEDS: Budesonide/Formoterol 160/4.5 1 PUFF INH IH SCH ×2 (09:59→20:01)
[2022-01-06] MEDS ORDERED: Furosemide 40 MG/4 ML VIAL IVP ONE (10:05)
[2022-01-06] MEDS ORDERED: *HR* LORazepam 2 MG/ML VIAL IVP PRN (15:46)
[2022-01-06] MEDS ORDERED: *HR* FentaNYL (PF) 100 MCG/2 ML VIAL IVP PRN ×2 (15:46→17:50)
[2022-01-06] MEDS ORDERED: Piperacillin/Tazobactam 3.375 GM in 0.9 % Sodium Chloride Mini Bag 100 ML IVPB SCH (16:00)
[2022-01-06] MEDS ORDERED: *HR* FentaNYL (PF) 100 MCG/2 ML VIAL IVP SCH (19:15)
[2022-01-06] MEDS: Atropine Sulfate 1% 40 DROP/2 ML BOTTLE SL PRN (22:02)
[2022-01-07] MEDS: *HR* FentaNYL (PF) 100 MCG/2 ML VIAL IVP PRN ×11 (01:06→18:08)
[2022-01-07] MEDS: *HR* LORazepam 2 MG/ML VIAL IVP PRN ×7 (04:17→18:08)
[2022-01-07] MEDS: *HR* Heparin 5,000 UNIT/ML VIAL SQ SCH ×2 (05:47→07:39)
[2022-01-07] MEDS: Dexmedetomidine HCl 400 MCG/100 ML MLS IVC SCH (06:13)
[2022-01-07] MEDS: Thiamine (B-1) 100 MG in 0.9 % Sodium Chloride 50 ML IVPB SCH (07:39)
[2022-01-07] MEDS: Valproic Acid INJ 500 MG in 0.9 % Sodium Chloride 100 ML IVPB SCH (07:39)
[2022-01-07] MEDS: Budesonide/Formoterol 160/4.5 1 PUFF INH IH SCH (08:03)
[2022-01-07] MEDS ORDERED: Scopolamine Patch 1.5 MG PATCH.TD72 TD SCH (09:30)
[2022-01-07] MEDS: Atropine Sulfate 1% 40 DROP/2 ML BOTTLE SL PRN ×2 (10:41→14:57)
[2022-01-07 11:32] VITALS: BP 94/60; PULSE 97; TEMP 97.9; O2SAT 64
[2022-01-07] MEDS ORDERED: FentaNYL (PF) 1,000 MCG/100 ML IV.SOLN IVC SCH (13:45)
[2022-01-08] MEDS ORDERED: levoFLOXacin 750 MG/150 ML 750 MG/150 ML BAG IVPB SCH (09:00)
[2022-01-09 00:32] LABS: Valproate Free 15 ug/mL (7-23); Valproate Total 47 ug/mL (50-125)
[2022-01-10 11:44] LABS: Valproate % Free 32 % (5-18)
== END 2022-01-07 21:16 | disposition expired | DRG 189 ==
LOC: 2ANU → ICNU 01-03 06:19 → 2ANU 01-07 10:26
PROVIDERS: ADMIT Internal Medicine; ATTEND Internal Medicine